=== PATIENT | male | born 1955 | race Caucasian/White ===

== ENCOUNTER 2023-05-11 23:43 | Inpatient (IN) | payer MEDICARE, OTHER ==
[2023-05-11] MEDS: Sodium Chloride 0.9% 10 ML Syringe FLUSH PRN (23:45)
[2023-05-12 00:11] LABS: HEMATOCRIT 44.9 % (38.3-50.1); HEMOGLOBIN 15.4 g/dL (12.9-17.7); MEAN CORPUSCULAR HGB CONC 34.3 g/dL (28.7-35.3); MEAN CORPUSCULAR VOLUME 93.3 fL (80.8-98.7); MEAN PLATELET VOLUME 8.6 fL (6.7-11.0); PLATELET COUNT,PLT 168 x10(3)uL (117-477); RED BLOOD CELL COUNT 4.81 x10(6)uL (3.90-5.90); RED CELL DISTRIBUTION WIDTH 13.7 % (12.4-15.0); WHITE BLOOD CELL COUNT,WBC 15.8 x10-3/uL (3.2-10.1)
[2023-05-12 00:16] LABS: BASE EXCESS VENOUS,POC -11 mmol/L (-2 - 3+); PCO2 VENOUS,POC 28 mmHg (41-51)
[2023-05-12 00:20] LABS: ALANINE AMINOTRANSFERASE,ALT 81 U/L (12-36); ALBUMIN 3.7 g/dL (3.2-4.6); ALKALINE PHOSPHATASE 76 IU/L (56-112); BILIRUBIN TOTAL 1.1 mg/dL (0.1-1.3); BLOOD UREA NITROGEN,BUN 31 mg/dL (7-18); BUN/CREATININE RATIO 16.3 (9-20); CALCIUM 9.5 mg/dL (8.6-10.2); CARBON DIOXIDE,CO2 19 mmol/L (21-32); CREATININE 1.9 mg/dL (0.70-1.30); ESTIMATED GFR 38 mL/min (>60); GLUCOSE RANDOM 122 mg/dL (80-116); MAGNESIUM 2.4 mg/dL (1.8-2.5); PROTEIN TOTAL,TP 7.5 g/dL (6.0-8.0); SODIUM,NA 123 mmol/L (135-145)
[2023-05-12 00:33] LABS: ASPARTATE AMNIOTRANSFERASE,AST 225 IU/L (5-25)
[2023-05-12 00:34] LABS: CHLORIDE,CL 84 mmol/L (100-110)
[2023-05-12] MEDS ORDERED: Sodium Chloride 0.9% 1,000 ML IV ONE ×2 (00:34→01:48)
[2023-05-12 00:35] LABS: C-REACTIVE PROTEIN 19.3 mg/dL (0.5-0.9); ETHANOL BLOOD MEDICAL < 0.03 % (<0.03); TROPONIN I 313.4 pg/mL (4.0-60.3)
[2023-05-12 00:57] LABS: BAND PERCENT MAN 1 % (0-6); LYMPHOCYTES PERCENT MAN 8 % (13-37); MONOCYTES PERCENT MAN 7 % (4-12); SEG NEUTROPHILS PERCENT MAN 84 % (46-82)
[2023-05-12] MEDS ORDERED: Lidocaine 2% HCl 6 ML Jel ONE (01:24)
[2023-05-12] MEDS: Sodium Chloride 0.9% 10 ML Syringe FLUSH PRN ×2 (01:30→20:51)
[2023-05-12 01:33] LABS: BILIRUBIN,URINE SMALL (NEGATIVE); GLUCOSE,URINE NORMAL (NORMAL); KETONES,URINE 15 mg/dL (NEGATIVE); LEUKOCYTE ESTERASE,URINE NEGATIVE (NEGATIVE); NITRITE,URINE NEGATIVE (NEGATIVE); OCCULT BLOOD,URINE LARGE (NEGATIVE); PROTEIN,URINE TRACE mg/dL (NEGATIVE); UROBILINOGEN,URINE NORMAL (NEGATIVE)
[2023-05-12 01:36] LABS: APPEARANCE,URINE CLEAR (CLEAR); COLOR,URINE YELLOW (YELLOW); WBC,URINE 0-5 (0-5)
[2023-05-12 01:37] LABS: BACTERIA,URINE MODERATE (NS); MUCUS,URINE FEW (NS); SQUAMOUS EPITHELIAL CELLS,UR FEW (NS,R,O)
[2023-05-12 01:38] LABS: AMPHETAMINES SCREEN, URINE NEGATIVE (NEGATIVE); BARBITURATE SCREEN,URINE POSITIVE (NEGATIVE); BENZODIAZEPINES SCREEN,URINE NEGATIVE (NEGATIVE); BUPRENORPHINE SCREEN,URINE NEGATIVE (NEGATIVE); METHADONE SCREEN, URINE NEGATIVE (NEGATIVE); METHAMPHETAMINE SCREEN, URINE NEGATIVE (NEGATIVE); OXYCODONE SCREEN,URINE NEGATIVE (NEGATIVE); PROPOXYPHENE SCREEN,URINE NEGATIVE (NEGATIVE); THC SCREEN,URINE NEGATIVE (NEGATIVE)
[2023-05-12] MEDS ORDERED: Sodium Chloride 0.9% 1,000 ML IV SCH (02:00)
[2023-05-12] MEDS: Sodium Chloride 0.9% 1,000 ML IV SCH ×3 (02:15→20:47)
[2023-05-12] MEDS ORDERED: Ondansetron 4 MG/2 ML SDV IV PRN (04:55)
[2023-05-12] MEDS ORDERED: Enoxaparin 40 MG/0.4 ML Syringe SUBCUT SCH (05:00)
[2023-05-12] MEDS ORDERED: Diphtheria,Pertussis(Acell),Tetanus Vaccine 0.5 ML Syringe IM ONE (05:48)
[2023-05-12 06:39] LABS: BASOPHILS PERCENT AUTO 0.2 % (0.3-3.8); HEMATOCRIT 37.4 % (38.3-50.1); LYMPHOCYTES ABSOLUTE AUTO 1.1 x10-3/uL (0.5-4.5); LYMPHOCYTES PERCENT AUTO 8.2 % (15.8-45.3); MEAN CORPUSCULAR HEMOGLOBIN 31.9 pg (27.0-33.3); MEAN CORPUSCULAR HGB CONC 34.7 g/dL (28.7-35.3); MEAN PLATELET VOLUME 8.3 fL (6.7-11.0); MONOCYTES ABSOLUTE AUTO 1.3 x10-3/uL (0.0-1.2); MONOCYTES PERCENT AUTO 10.4 % (5.5-15.2); NEUTROPHILS ABSOLUTE AUTO 10.5 x10-3/uL (1.7-6.9); NEUTROPHILS PERCENT AUTO 81.2 % (40.3-71.8); PLATELET COUNT,PLT 154 x10(3)uL (117-477); RED BLOOD CELL COUNT 4.06 x10(6)uL (3.90-5.90); RED CELL DISTRIBUTION WIDTH 13.6 % (12.4-15.0); WHITE BLOOD CELL COUNT,WBC 12.9 x10-3/uL (3.2-10.1)
[2023-05-12 06:42] LABS: BLOOD UREA NITROGEN,BUN 32 mg/dL (7-18); BUN/CREATININE RATIO 22.9 (9-20); CALCIUM 8.4 mg/dL (8.6-10.2); CARBON DIOXIDE,CO2 23 mmol/L (21-32); CHLORIDE,CL 90 mmol/L (100-110); CREATININE 1.4 mg/dL (0.70-1.30); EST CRCL DRUG DOSING (CG) 55.37 mL/min; ESTIMATED GFR 55 mL/min (>60); GLUCOSE RANDOM 99 mg/dL (80-116); POTASSIUM,K 4.2 mmol/L (3.5-5.3); SODIUM,NA 126 mmol/L (135-145)
[2023-05-12] MEDS: Pantoprazole 40 MG Vial IVPUSH SCH ×2 (07:01→17:53)
[2023-05-12] MEDS ORDERED: PHENobarbital 16.2 MG Tab PO SCH (09:00)
[2023-05-12] MEDS: PHENobarbital 32.4 MG Tab PO SCH (10:46)
[2023-05-13] MEDS: Pantoprazole 40 MG Vial IVPUSH SCH ×2 (04:58→17:54)
[2023-05-13] MEDS: Sodium Chloride 0.9% 1,000 ML IV SCH ×3 (05:27→22:30)
[2023-05-13 06:51] LABS: BASOPHILS PERCENT AUTO 0.3 % (0.3-3.8); EOSINOPHILS PERCENT AUTO 0.5 % (0.1-6.8); HEMATOCRIT 30.9 % (38.3-50.1); LYMPHOCYTES ABSOLUTE AUTO 1.2 x10-3/uL (0.5-4.5); LYMPHOCYTES PERCENT AUTO 16.4 % (15.8-45.3); MEAN CORPUSCULAR HEMOGLOBIN 32.5 pg (27.0-33.3); MEAN CORPUSCULAR HGB CONC 35.4 g/dL (28.7-35.3); MEAN CORPUSCULAR VOLUME 91.7 fL (80.8-98.7); MEAN PLATELET VOLUME 8.2 fL (6.7-11.0); MONOCYTES ABSOLUTE AUTO 0.6 x10-3/uL (0.0-1.2); MONOCYTES PERCENT AUTO 8.2 % (5.5-15.2); NEUTROPHILS ABSOLUTE AUTO 5.3 x10-3/uL (1.7-6.9); NEUTROPHILS PERCENT AUTO 74.6 % (40.3-71.8); PLATELET COUNT,PLT 123 x10(3)uL (117-477); RED BLOOD CELL COUNT 3.38 x10(6)uL (3.90-5.90); RED CELL DISTRIBUTION WIDTH 13.3 % (12.4-15.0); WHITE BLOOD CELL COUNT,WBC 7.1 x10-3/uL (3.2-10.1)
[2023-05-13 07:20] LABS: ALANINE AMINOTRANSFERASE,ALT 67 U/L (12-36); ALBUMIN 2.7 g/dL (3.2-4.6); ALKALINE PHOSPHATASE 52 IU/L (56-112); BILIRUBIN TOTAL 0.9 mg/dL (0.1-1.3); BLOOD UREA NITROGEN,BUN 18 mg/dL (7-18); BUN/CREATININE RATIO 22.5 (9-20); CARBON DIOXIDE,CO2 25 mmol/L (21-32); CHLORIDE,CL 94 mmol/L (100-110); CREATININE 0.8 mg/dL (0.70-1.30); EST CRCL DRUG DOSING (CG) 95.43 mL/min; ESTIMATED GFR 97 mL/min (>60); GLUCOSE RANDOM 105 mg/dL (80-116); POTASSIUM,K 3.6 mmol/L (3.5-5.3); PROTEIN TOTAL,TP 5.5 g/dL (6.0-8.0); SODIUM,NA 127 mmol/L (135-145)
[2023-05-13 07:22] LABS: ASPARTATE AMNIOTRANSFERASE,AST 182 IU/L (5-25)
[2023-05-13 07:23] LABS: CREATINE KINASE,CK 3760 IU/L (60-160)
[2023-05-13] MEDS: PHENobarbital 32.4 MG Tab PO SCH (09:43)
[2023-05-13] MEDS: Enoxaparin 40 MG/0.4 ML Syringe SUBCUT SCH (09:45)
[2023-05-13] MEDS: Sodium Chloride 1 GM Tab PO SCH ×2 (11:55→21:00)
[2023-05-13] MEDS: Loperamide 2 MG Cap PO PRN (15:27)
[2023-05-14] MEDS: Acetaminophen 325 MG Tab PO PRN ×3 (03:57→22:23)
[2023-05-14] MEDS: Sodium Chloride 0.9% 1,000 ML IV SCH (06:40)
[2023-05-14 06:52] LABS: BILIRUBIN,URINE NEGATIVE (NEGATIVE); GLUCOSE,URINE NORMAL (NORMAL); KETONES,URINE NEGATIVE (NEGATIVE); LEUKOCYTE ESTERASE,URINE NEGATIVE (NEGATIVE); NITRITE,URINE NEGATIVE (NEGATIVE); OCCULT BLOOD,URINE MODERATE (NEGATIVE); PROTEIN,URINE NEGATIVE (NEGATIVE); UROBILINOGEN,URINE NORMAL (NEGATIVE)
[2023-05-14 06:55] LABS: APPEARANCE,URINE CLEAR (CLEAR); BACTERIA,URINE OCCASIONAL (NS); COLOR,URINE YELLOW (YELLOW); RBC,URINE 0-5 (0-5); SQUAMOUS EPITHELIAL CELLS,UR RARE (NS,R,O); WBC,URINE 0-5 (0-5)
[2023-05-14 07:18] LABS: BLOOD UREA NITROGEN,BUN 10 mg/dL (7-18); BUN/CREATININE RATIO 12.5 (9-20); CALCIUM 8.3 mg/dL (8.6-10.2); CARBON DIOXIDE,CO2 28 mmol/L (21-32); CHLORIDE,CL 96 mmol/L (100-110); CREATININE 0.8 mg/dL (0.70-1.30); EST CRCL DRUG DOSING (CG) 95.43 mL/min; ESTIMATED GFR 97 mL/min (>60); GLUCOSE RANDOM 103 mg/dL (80-116); POTASSIUM,K 3.5 mmol/L (3.5-5.3); SODIUM,NA 130 mmol/L (135-145)
[2023-05-14] MEDS: Pantoprazole 40 MG Vial IVPUSH SCH (07:25)
[2023-05-14] MEDS: Loperamide 2 MG Cap PO PRN (08:33)
[2023-05-14] MEDS: PHENobarbital 32.4 MG Tab PO SCH (08:34)
[2023-05-14] MEDS: Sodium Chloride 1 GM Tab PO SCH ×2 (08:35→20:12)
[2023-05-14] MEDS: Enoxaparin 40 MG/0.4 ML Syringe SUBCUT SCH (08:36)
[2023-05-15] MEDS: Loperamide 2 MG Cap PO PRN ×2 (04:59→14:33)
[2023-05-15 07:21] LABS: BLOOD UREA NITROGEN,BUN 8 mg/dL (7-18); CALCIUM 8.9 mg/dL (8.6-10.2); CARBON DIOXIDE,CO2 30 mmol/L (21-32); CHLORIDE,CL 93 mmol/L (100-110); CREATININE 0.8 mg/dL (0.70-1.30); EST CRCL DRUG DOSING (CG) 95.43 mL/min; ESTIMATED GFR 97 mL/min (>60); GLUCOSE RANDOM 99 mg/dL (80-116); POTASSIUM,K 3.8 mmol/L (3.5-5.3); SODIUM,NA 128 mmol/L (135-145)
[2023-05-15 07:22] LABS: CREATINE KINASE,CK 3559 IU/L (60-160)
[2023-05-15] MEDS: Enoxaparin 40 MG/0.4 ML Syringe SUBCUT SCH (08:17)
[2023-05-15] MEDS: Sodium Chloride 1 GM Tab PO SCH ×2 (08:17→20:32)
[2023-05-15] MEDS: PHENobarbital 32.4 MG Tab PO SCH (08:17)
[2023-05-16] MEDS: Loperamide 2 MG Cap PO PRN (07:10)
[2023-05-16 07:15] LABS: BLOOD UREA NITROGEN,BUN 9 mg/dL (7-18); BUN/CREATININE RATIO 11.3 (9-20); CALCIUM 8.9 mg/dL (8.6-10.2); CARBON DIOXIDE,CO2 30 mmol/L (21-32); CHLORIDE,CL 93 mmol/L (100-110); CREATININE 0.8 mg/dL (0.70-1.30); EST CRCL DRUG DOSING (CG) 95.43 mL/min; ESTIMATED GFR 97 mL/min (>60); GLUCOSE RANDOM 100 mg/dL (80-116); POTASSIUM,K 3.9 mmol/L (3.5-5.3); SODIUM,NA 130 mmol/L (135-145)
[2023-05-16 07:17] LABS: CREATINE KINASE,CK 1481 IU/L (60-160)
[2023-05-16] MEDS: Enoxaparin 40 MG/0.4 ML Syringe SUBCUT SCH (09:35)
[2023-05-16] MEDS: Sodium Chloride 1 GM Tab PO SCH ×2 (09:36→20:51)
[2023-05-16] MEDS: PHENobarbital 32.4 MG Tab PO SCH (09:37)
[2023-05-16] MEDS ORDERED: Ondansetron 4 MG Tab.DIS PO PRN (19:01)
[2023-05-17 07:08] LABS: BLOOD UREA NITROGEN,BUN 9 mg/dL (7-18); BUN/CREATININE RATIO 11.3 (9-20); CALCIUM 9.1 mg/dL (8.6-10.2); CARBON DIOXIDE,CO2 31 mmol/L (21-32); CHLORIDE,CL 93 mmol/L (100-110); CREATININE 0.8 mg/dL (0.70-1.30); EST CRCL DRUG DOSING (CG) 95.43 mL/min; ESTIMATED GFR 97 mL/min (>60); GLUCOSE RANDOM 93 mg/dL (80-116); POTASSIUM,K 3.8 mmol/L (3.5-5.3); SODIUM,NA 130 mmol/L (135-145)
[2023-05-17 07:13] LABS: CREATINE KINASE,CK 720 IU/L (60-160)
[2023-05-17] MEDS: Enoxaparin 40 MG/0.4 ML Syringe SUBCUT SCH (08:30)
[2023-05-17] MEDS: PHENobarbital 32.4 MG Tab PO SCH (08:31)
[2023-05-17] MEDS: Sodium Chloride 1 GM Tab PO SCH (08:31)
== END 2023-05-17 13:35 | disposition home or self-care (01) | DRG 565 ==
LOC: FB.ED 23:43 → FB.MS 05-12 04:52
PROVIDERS: ADMIT Emergency Medicine; ATTEND Family Medicine
PROC: 3E0234Z Introduction of Serum, Toxoid and Vaccine into Muscle, Percutaneous Approach (ICD-10-PCS; principal; 2023-05-12)
DX: T79.6XXA Traumatic ischemia of muscle, initial encounter (principal); E87.1 Hypo-osmolality and hyponatremia; N17.9 Acute kidney failure, unspecified; N39.0 Urinary tract infection, site not specified; R77.8 Other specified abnormalities of plasma proteins; R56.9 Unspecified convulsions; Z96.643 Presence of artificial hip joint, bilateral; G93.89 Other specified disorders of brain; M47.812 Spondylosis without myelopathy or radiculopathy, cervical region; E86.0 Dehydration; E87.20 Acidosis, unspecified; S00.83XA Contusion of other part of head, initial encounter; I10 Essential (primary) hypertension; R31.29 Other microscopic hematuria; B96.89 Other specified bacterial agents as the cause of diseases classified elsewhere; F10.90 Alcohol use, unspecified, uncomplicated; Z23 Encounter for immunization; S20.219A Contusion of unspecified front wall of thorax, initial encounter; Z90.89 Acquired absence of other organs; S80.212A Abrasion, left knee, initial encounter; S80.211A Abrasion, right knee, initial encounter; Z79.899 Other long term (current) drug therapy; W19.XXXA Unspecified fall, initial encounter
CPT/HCPCS: 36415; 51702; 70450; 71250; 72125; 74176; 80048; 80053; 80307; 81001; 82550; 83605; 83735; 84295; 84484; 85025; 86140; 87086; 90471; 90715; 93005; 93010; 96360; 96361; 97161-GP; 97165-GO; 97530-GP; 97535-GO; 99222; 99232; 99238; 99285; 99285-25; A9270-GY; C9113; J1650; J3490; J7030; Q0162

== ENCOUNTER 2024-06-02 15:18 | Inpatient (IN) | payer MEDICAID, MEDICARE ==
[2024-06-02 15:43] LABS: BASOPHILS PERCENT AUTO 0.8 % (0.3-3.8); EOSINOPHILS ABSOLUTE AUTO 0.4 x10-3/uL (0.0-0.6); EOSINOPHILS PERCENT AUTO 6.6 % (0.1-6.8); HEMATOCRIT 39.6 % (38.3-50.1); HEMOGLOBIN 13.6 g/dL (12.9-17.7); LYMPHOCYTES ABSOLUTE AUTO 1.4 x10-3/uL (0.5-4.5); MEAN CORPUSCULAR HEMOGLOBIN 30.7 pg (27.0-33.3); MEAN CORPUSCULAR HGB CONC 34.5 g/dL (28.7-35.3); MEAN CORPUSCULAR VOLUME 89.2 fL (80.8-98.7); MEAN PLATELET VOLUME 7.4 fL (6.7-11.0); MONOCYTES ABSOLUTE AUTO 0.6 x10-3/uL (0.0-1.2); MONOCYTES PERCENT AUTO 9.8 % (5.5-15.2); NEUTROPHILS ABSOLUTE AUTO 3.8 x10-3/uL (1.7-6.9); NEUTROPHILS PERCENT AUTO 60.8 % (40.3-71.8); PLATELET COUNT,PLT 178 x10(3)uL (117-477); RED BLOOD CELL COUNT 4.44 x10(6)uL (3.90-5.90); RED CELL DISTRIBUTION WIDTH 12.9 % (12.4-15.0); WHITE BLOOD CELL COUNT,WBC 6.3 x10-3/uL (3.2-10.1)
[2024-06-02] MEDS: Lactated Ringers 1,000 ML IV ONE (15:49)
[2024-06-02] MEDS: Sodium Chloride 0.9% 10 ML Syringe FLUSH PRN (15:49)
[2024-06-02] MEDS: Atropine/Diphenoxylate 0.025-2.5 MG Tab PO ONE (15:49)
[2024-06-02 15:54] LABS: ALANINE AMINOTRANSFERASE,ALT 12 U/L (12-36); ALBUMIN 3.6 g/dL (3.2-4.6); ALKALINE PHOSPHATASE 93 IU/L (56-112); ASPARTATE AMNIOTRANSFERASE,AST 20 IU/L (5-25); BILIRUBIN TOTAL 0.9 mg/dL (0.1-1.3); BLOOD UREA NITROGEN,BUN 7 mg/dL (7-18); CALCIUM 8.1 mg/dL (8.6-10.2); CARBON DIOXIDE,CO2 24 mmol/L (21-32); CREATININE 0.7 mg/dL (0.70-1.30); ESTIMATED GFR 100 mL/min (>60); GLUCOSE RANDOM 92 mg/dL (80-116); POTASSIUM,K 3.9 mmol/L (3.5-5.3); PROTEIN TOTAL,TP 7.2 g/dL (6.0-8.0)
[2024-06-02 15:55] LABS: CHLORIDE,CL 81 mmol/L (100-110); SODIUM,NA 115 mmol/L (135-145)
[2024-06-02 15:58] LABS: LACTIC ACID 0.8 mmol/L (0.4-2.0)
[2024-06-02] MEDS: Lactated Ringers 1,000 ML IV SCH (17:42)
[2024-06-02 19:06] LABS: BLOOD UREA NITROGEN,BUN 6 mg/dL (7-18); BUN/CREATININE RATIO 8.6 (9-20); CALCIUM 8.3 mg/dL (8.6-10.2); CARBON DIOXIDE,CO2 25 mmol/L (21-32); CREATININE 0.7 mg/dL (0.70-1.30); EST CRCL DRUG DOSING (CG) 107.57 mL/min; ESTIMATED GFR 100 mL/min (>60); GLUCOSE RANDOM 89 mg/dL (80-116); POTASSIUM,K 4.2 mmol/L (3.5-5.3)
[2024-06-02 19:10] LABS: CHLORIDE,CL 86 mmol/L (100-110); SODIUM,NA 119 mmol/L (135-145)
[2024-06-02] MEDS ORDERED: Ondansetron 4 MG/2 ML SDV IV PRN (19:24)
[2024-06-02] MEDS: Sodium Chloride 0.9% 1,000 ML IV SCH (19:41)
[2024-06-03 00:08] LABS: APPEARANCE,URINE CLEAR (CLEAR); COLOR,URINE YELLOW (YELLOW)
[2024-06-03 00:09] LABS: BACTERIA,URINE OCCASIONAL (NS); BILIRUBIN,URINE NEGATIVE (NEGATIVE); GLUCOSE,URINE NORMAL (NORMAL); KETONES,URINE 15 mg/dL (NEGATIVE); LEUKOCYTE ESTERASE,URINE NEGATIVE (NEGATIVE); NITRITE,URINE NEGATIVE (NEGATIVE); OCCULT BLOOD,URINE NEGATIVE (NEGATIVE); PROTEIN,URINE NEGATIVE (NEGATIVE); RBC,URINE 0-5 (0-5); SQUAMOUS EPITHELIAL CELLS,UR OCCASIONAL (NS,R,O); UROBILINOGEN,URINE NORMAL (NEGATIVE); WBC,URINE 0-5 (0-5)
[2024-06-03 06:46] LABS: BASOPHILS PERCENT AUTO 0.6 % (0.3-3.8); EOSINOPHILS ABSOLUTE AUTO 0.4 x10-3/uL (0.0-0.6); EOSINOPHILS PERCENT AUTO 7.1 % (0.1-6.8); HEMATOCRIT 39.5 % (38.3-50.1); HEMOGLOBIN 13.8 g/dL (12.9-17.7); LYMPHOCYTES ABSOLUTE AUTO 1.3 x10-3/uL (0.5-4.5); LYMPHOCYTES PERCENT AUTO 21.9 % (15.8-45.3); MEAN CORPUSCULAR HEMOGLOBIN 31.2 pg (27.0-33.3); MEAN CORPUSCULAR VOLUME 89.3 fL (80.8-98.7); MEAN PLATELET VOLUME 7.6 fL (6.7-11.0); MONOCYTES ABSOLUTE AUTO 0.7 x10-3/uL (0.0-1.2); MONOCYTES PERCENT AUTO 10.7 % (5.5-15.2); NEUTROPHILS ABSOLUTE AUTO 3.6 x10-3/uL (1.7-6.9); NEUTROPHILS PERCENT AUTO 59.7 % (40.3-71.8); PLATELET COUNT,PLT 193 x10(3)uL (117-477); RED BLOOD CELL COUNT 4.43 x10(6)uL (3.90-5.90); RED CELL DISTRIBUTION WIDTH 12.9 % (12.4-15.0); WHITE BLOOD CELL COUNT,WBC 6.1 x10-3/uL (3.2-10.1)
[2024-06-03 06:58] LABS: BLOOD UREA NITROGEN,BUN 5 mg/dL (7-18); BUN/CREATININE RATIO 6.3 (9-20); CALCIUM 8.2 mg/dL (8.6-10.2); CARBON DIOXIDE,CO2 28 mmol/L (21-32); CHLORIDE,CL 92 mmol/L (100-110); CREATINE KINASE,CK 135 IU/L (60-160); CREATININE 0.8 mg/dL (0.70-1.30); EST CRCL DRUG DOSING (CG) 95.56 mL/min; ESTIMATED GFR 96 mL/min (>60); GLUCOSE RANDOM 91 mg/dL (80-116); MAGNESIUM 1.8 mg/dL (1.8-2.5); POTASSIUM,K 3.9 mmol/L (3.5-5.3); SODIUM,NA 127 mmol/L (135-145)
[2024-06-03] MEDS: Dextrose 5% in Water 1,000 ML IV SCH (09:16)
[2024-06-03] MEDS: Sodium Chloride 0.9% 1,000 ML IV SCH (14:56)
[2024-06-03] MEDS: Thiamine 100 MG in Sodium Chloride 0.9% 50 ML IV SCH (15:08)
[2024-06-03] MEDS: PHENobarbital 32.4 MG Tab PO SCH (15:08)
[2024-06-03] MEDS: Enoxaparin 40 MG/0.4 ML Syringe SUBCUT SCH (15:11)
[2024-06-04 06:48] LABS: BASOPHILS ABSOLUTE AUTO 0.1 x10-3/uL (0.0-0.3); BASOPHILS PERCENT AUTO 0.9 % (0.3-3.8); EOSINOPHILS ABSOLUTE AUTO 0.7 x10-3/uL (0.0-0.6); HEMATOCRIT 36.7 % (38.3-50.1); HEMOGLOBIN 12.7 g/dL (12.9-17.7); LYMPHOCYTES ABSOLUTE AUTO 1.8 x10-3/uL (0.5-4.5); LYMPHOCYTES PERCENT AUTO 27.2 % (15.8-45.3); MEAN CORPUSCULAR HEMOGLOBIN 31.2 pg (27.0-33.3); MEAN CORPUSCULAR HGB CONC 34.7 g/dL (28.7-35.3); MEAN CORPUSCULAR VOLUME 90.1 fL (80.8-98.7); MEAN PLATELET VOLUME 7.7 fL (6.7-11.0); MONOCYTES ABSOLUTE AUTO 0.6 x10-3/uL (0.0-1.2); MONOCYTES PERCENT AUTO 9.3 % (5.5-15.2); NEUTROPHILS ABSOLUTE AUTO 3.5 x10-3/uL (1.7-6.9); NEUTROPHILS PERCENT AUTO 52.6 % (40.3-71.8); PLATELET COUNT,PLT 175 x10(3)uL (117-477); RED BLOOD CELL COUNT 4.07 x10(6)uL (3.90-5.90); RED CELL DISTRIBUTION WIDTH 13.1 % (12.4-15.0); WHITE BLOOD CELL COUNT,WBC 6.6 x10-3/uL (3.2-10.1)
[2024-06-04 07:01] LABS: BLOOD UREA NITROGEN,BUN 5 mg/dL (7-18); BUN/CREATININE RATIO 5.6 (9-20); CALCIUM 8.2 mg/dL (8.6-10.2); CARBON DIOXIDE,CO2 28 mmol/L (21-32); CHLORIDE,CL 94 mmol/L (100-110); CREATININE 0.9 mg/dL (0.70-1.30); EST CRCL DRUG DOSING (CG) 84.94 mL/min; ESTIMATED GFR 93 mL/min (>60); GLUCOSE RANDOM 90 mg/dL (80-116); POTASSIUM,K 3.8 mmol/L (3.5-5.3); SODIUM,NA 127 mmol/L (135-145)
[2024-06-04] MEDS: Thiamine 200 MG/2 ML MDV IV SCH (08:45)
[2024-06-04] MEDS: Acetaminophen 325 MG Tab PO PRN (20:58)
[2024-06-05 06:37] LABS: BASOPHILS ABSOLUTE AUTO 0.1 x10-3/uL (0.0-0.3); EOSINOPHILS ABSOLUTE AUTO 0.8 x10-3/uL (0.0-0.6); EOSINOPHILS PERCENT AUTO 13.7 % (0.1-6.8); HEMATOCRIT 36.6 % (38.3-50.1); HEMOGLOBIN 12.7 g/dL (12.9-17.7); LYMPHOCYTES ABSOLUTE AUTO 1.5 x10-3/uL (0.5-4.5); MEAN CORPUSCULAR HEMOGLOBIN 31.1 pg (27.0-33.3); MEAN CORPUSCULAR HGB CONC 34.7 g/dL (28.7-35.3); MEAN CORPUSCULAR VOLUME 89.7 fL (80.8-98.7); MEAN PLATELET VOLUME 7.8 fL (6.7-11.0); MONOCYTES ABSOLUTE AUTO 0.5 x10-3/uL (0.0-1.2); MONOCYTES PERCENT AUTO 8.9 % (5.5-15.2); NEUTROPHILS ABSOLUTE AUTO 3.2 x10-3/uL (1.7-6.9); NEUTROPHILS PERCENT AUTO 51.4 % (40.3-71.8); PLATELET COUNT,PLT 174 x10(3)uL (117-477); RED BLOOD CELL COUNT 4.09 x10(6)uL (3.90-5.90); RED CELL DISTRIBUTION WIDTH 13.3 % (12.4-15.0); WHITE BLOOD CELL COUNT,WBC 6.1 x10-3/uL (3.2-10.1)
[2024-06-05 06:39] LABS: BLOOD UREA NITROGEN,BUN 5 mg/dL (7-18); BUN/CREATININE RATIO 5.6 (9-20); CALCIUM 7.9 mg/dL (8.6-10.2); CARBON DIOXIDE,CO2 26 mmol/L (21-32); CHLORIDE,CL 97 mmol/L (100-110); CREATININE 0.9 mg/dL (0.70-1.30); EST CRCL DRUG DOSING (CG) 84.94 mL/min; ESTIMATED GFR 93 mL/min (>60); GLUCOSE RANDOM 96 mg/dL (80-116); POTASSIUM,K 3.7 mmol/L (3.5-5.3); SODIUM,NA 129 mmol/L (135-145)
[2024-06-05] MEDS: Sodium Chloride 1 GM Tab PO STA (10:09)
[2024-06-05] MEDS: Calcium Carbonate 500 MG Tab.Chew PO ONE (14:02)
[2024-06-07 06:28] LABS: ADENOVIRUS 40/41 PCR Not Detected; ASTROVIRUS PCR Not Detected; CAMPYLOBACTER PCR Not Detected; CRYPTOSPORIDIUM PCR Not Detected; CYCLOSPORA CAYETANENSIS PCR Not Detected; ENTAMOEBA HISTOLYTICA PCR Not Detected; ENTEROAGGREGATIVE E. COLI PCR Not Detected; ENTEROPATHOGENIC E. COLI PCR Not Detected; ENTEROTOXIGENIC E. COLI PCR Not Detected; GIARDIA LAMBLIA PCR Not Detected; NOROVIRUS GI/GII PCR Not Detected; PLESIOMONAS SHIGELLOIDES PCR Not Detected; ROTAVIRUS A PCR Not Detected; SALMONELLA PCR Not Detected; SAPOVIRUS PCR Not Detected; SHIG/ENTEROINVASIVE E COLI PCR Not Detected; SHIGA TOXIN-PRODUC E. COLI PCR Not Detected; VIBRIO CHOLERAE PCR Not Detected; VIBRIO PCR Not Detected; YERSINIA ENTEROCOLITICA PCR Not Detected
== END 2024-06-05 15:45 | disposition home health service (06) | DRG 641 ==
LOC: FB.ED 15:18 → FB.MS 19:24 → OBSVTOIN 06-04 16:09
PROVIDERS: ADMIT Family Medicine; ATTEND Internal Medicine
DX: E87.1 Hypo-osmolality and hyponatremia (principal); K52.9 Noninfective gastroenteritis and colitis, unspecified; E86.0 Dehydration; Z96.649 Presence of unspecified artificial hip joint; Z79.899 Other long term (current) drug therapy; Z90.89 Acquired absence of other organs
CPT/HCPCS: 36415 ×3; 80048 ×3; 80053; 81001; 82550; 83605; 83690; 83735; 84295 ×4; 85025 ×3; 86140; 87040 ×2; 87230; 87507; 94150; 96360; 96361; 99285 ×2; A9270 ×3; J1650 ×2; J3411 ×2; J3490 ×2; J7030 ×5; J7060; J7120 ×2; U0002; 96365; 96366; 96372; 96376; 97161-GP; 97165-GO; 97530-GP; 99222; 99232; 99238; G0378

== ENCOUNTER 2024-06-09 20:54 | Emergency (ER) | payer MEDICARE ==
[2024-06-09 21:41] LABS: APPEARANCE,URINE CLEAR (CLEAR); BACTERIA,URINE NOT SEEN (NS); BILIRUBIN,URINE NEGATIVE (NEGATIVE); COLOR,URINE YELLOW (YELLOW); GLUCOSE,URINE NORMAL (NORMAL); KETONES,URINE NEGATIVE (NEGATIVE); LEUKOCYTE ESTERASE,URINE NEGATIVE (NEGATIVE); NITRITE,URINE NEGATIVE (NEGATIVE); OCCULT BLOOD,URINE NEGATIVE (NEGATIVE); PH,URINE 6.5 (5.0-6.5); PROTEIN,URINE NEGATIVE (NEGATIVE); RBC,URINE 0-5 (0-5); SQUAMOUS EPITHELIAL CELLS,UR NOT SEEN (NS,R,O); UROBILINOGEN,URINE NORMAL (NEGATIVE); WBC,URINE 0-5 (0-5)
[2024-06-09] MEDS ORDERED: Sodium Chloride 0.9% 10 ML Syringe FLUSH PRN (21:59)
[2024-06-09] MEDS: Sodium Chloride 0.9% 1,000 ML IV ONE (22:10)
[2024-06-09 22:14] LABS: BASOPHILS ABSOLUTE AUTO 0.1 x10-3/uL (0.0-0.3); BASOPHILS PERCENT AUTO 1.2 % (0.3-3.8); EOSINOPHILS ABSOLUTE AUTO 0.4 x10-3/uL (0.0-0.6); EOSINOPHILS PERCENT AUTO 7.7 % (0.1-6.8); HEMATOCRIT 39.9 % (38.3-50.1); LYMPHOCYTES ABSOLUTE AUTO 1.8 x10-3/uL (0.5-4.5); LYMPHOCYTES PERCENT AUTO 33.6 % (15.8-45.3); MEAN CORPUSCULAR HEMOGLOBIN 31.3 pg (27.0-33.3); MEAN CORPUSCULAR HGB CONC 35.2 g/dL (28.7-35.3); MEAN CORPUSCULAR VOLUME 88.9 fL (80.8-98.7); MEAN PLATELET VOLUME 7.4 fL (6.7-11.0); MONOCYTES ABSOLUTE AUTO 0.5 x10-3/uL (0.0-1.2); MONOCYTES PERCENT AUTO 9.2 % (5.5-15.2); NEUTROPHILS ABSOLUTE AUTO 2.6 x10-3/uL (1.7-6.9); NEUTROPHILS PERCENT AUTO 48.3 % (40.3-71.8); PLATELET COUNT,PLT 222 x10(3)uL (117-477); RED BLOOD CELL COUNT 4.49 x10(6)uL (3.90-5.90); RED CELL DISTRIBUTION WIDTH 13.3 % (12.4-15.0); WHITE BLOOD CELL COUNT,WBC 5.4 x10-3/uL (3.2-10.1)
[2024-06-09 22:24] LABS: ALANINE AMINOTRANSFERASE,ALT 14 U/L (12-36); ALBUMIN 3.7 g/dL (3.2-4.6); ALKALINE PHOSPHATASE 87 IU/L (56-112); ASPARTATE AMNIOTRANSFERASE,AST 10 IU/L (5-25); BILIRUBIN TOTAL 0.5 mg/dL (0.1-1.3); BLOOD UREA NITROGEN,BUN 10 mg/dL (7-18); CALCIUM 8.5 mg/dL (8.6-10.2); CARBON DIOXIDE,CO2 27 mmol/L (21-32); CHLORIDE,CL 90 mmol/L (100-110); ESTIMATED GFR 82 mL/min (>60); GLUCOSE RANDOM 91 mg/dL (80-116); POTASSIUM,K 4.1 mmol/L (3.5-5.3); PROTEIN TOTAL,TP 7.3 g/dL (6.0-8.0); SODIUM,NA 125 mmol/L (135-145)
[2024-06-09 22:28] LABS: LACTIC ACID 0.6 mmol/L (0.4-2.0)
[2024-06-09] MEDS: Sodium Chloride 1 GM Tab PO ONE (23:17)
== END 2024-06-09 23:45 | disposition home or self-care (01) ==
LOC: FB.ED 20:54
DX: G44.209 Tension-type headache, unspecified, not intractable (principal); E87.1 Hypo-osmolality and hyponatremia; I10 Essential (primary) hypertension; Z79.899 Other long term (current) drug therapy
CPT/HCPCS: 36415; 80053; 81001; 83605; 85025; 96360; 99284; A9270; J7030

== ENCOUNTER 2024-06-18 08:17 | Emergency (ER) | payer MEDICARE ==
[2024-06-18 09:07] LABS: BASOPHILS ABSOLUTE AUTO 0.1 x10-3/uL (0.0-0.3); BASOPHILS PERCENT AUTO 1.3 % (0.3-3.8); EOSINOPHILS ABSOLUTE AUTO 0.3 x10-3/uL (0.0-0.6); EOSINOPHILS PERCENT AUTO 4.9 % (0.1-6.8); HEMATOCRIT 41.6 % (38.3-50.1); LYMPHOCYTES ABSOLUTE AUTO 1.5 x10-3/uL (0.5-4.5); LYMPHOCYTES PERCENT AUTO 27.4 % (15.8-45.3); MEAN CORPUSCULAR HEMOGLOBIN 30.4 pg (27.0-33.3); MEAN CORPUSCULAR HGB CONC 33.7 g/dL (28.7-35.3); MEAN CORPUSCULAR VOLUME 90.1 fL (80.8-98.7); MEAN PLATELET VOLUME 7.4 fL (6.7-11.0); MONOCYTES ABSOLUTE AUTO 0.5 x10-3/uL (0.0-1.2); MONOCYTES PERCENT AUTO 9.5 % (5.5-15.2); NEUTROPHILS ABSOLUTE AUTO 3.2 x10-3/uL (1.7-6.9); NEUTROPHILS PERCENT AUTO 56.9 % (40.3-71.8); PLATELET COUNT,PLT 246 x10(3)uL (117-477); RED BLOOD CELL COUNT 4.62 x10(6)uL (3.90-5.90); RED CELL DISTRIBUTION WIDTH 13.5 % (12.4-15.0); WHITE BLOOD CELL COUNT,WBC 5.6 x10-3/uL (3.2-10.1)
[2024-06-18 09:14] LABS: BLOOD UREA NITROGEN,BUN 9 mg/dL (7-18); BUN/CREATININE RATIO 8.2 (9-20); CALCIUM 8.9 mg/dL (8.6-10.2); CARBON DIOXIDE,CO2 29 mmol/L (21-32); CHLORIDE,CL 92 mmol/L (100-110); CREATININE 1.1 mg/dL (0.70-1.30); EST CRCL DRUG DOSING (CG) 68.45 mL/min; ESTIMATED GFR 73 mL/min (>60); GLUCOSE RANDOM 92 mg/dL (80-116); POTASSIUM,K 4.5 mmol/L (3.5-5.3); SODIUM,NA 127 mmol/L (135-145)
[2024-06-18] MEDS: Sodium Chloride 0.9% 1,000 ML IV ONE (09:16)
[2024-06-18 09:19] LABS: A/G RATIO 1.1; ALANINE AMINOTRANSFERASE,ALT 13 U/L (12-36); ALBUMIN 3.8 g/dL (3.2-4.6); ALKALINE PHOSPHATASE 93 IU/L (56-112); ASPARTATE AMNIOTRANSFERASE,AST 12 IU/L (5-25); BILIRUBIN TOTAL 0.4 mg/dL (0.1-1.3); MAGNESIUM 1.9 mg/dL (1.8-2.5); PROTEIN TOTAL,TP 7.2 g/dL (6.0-8.0)
[2024-06-18 09:22] LABS: BILIRUBIN,URINE NEGATIVE (NEGATIVE); GLUCOSE,URINE NORMAL (NORMAL); KETONES,URINE NEGATIVE (NEGATIVE); LEUKOCYTE ESTERASE,URINE NEGATIVE (NEGATIVE); NITRITE,URINE NEGATIVE (NEGATIVE); OCCULT BLOOD,URINE NEGATIVE (NEGATIVE); PROTEIN,URINE NEGATIVE (NEGATIVE); UROBILINOGEN,URINE NORMAL (NEGATIVE)
[2024-06-18 09:27] LABS: C-REACTIVE PROTEIN 1.32 mg/dL (<0.50); TROPONIN I 5.6 pg/mL (4.0-60.3); TSH ULTRASENSITIVE 1.24 IU/mL (0.36-3.74)
[2024-06-18 09:32] LABS: APPEARANCE,URINE CLEAR (CLEAR); BACTERIA,URINE RARE (NS); COLOR,URINE YELLOW (YELLOW); RBC,URINE 0-5 (0-5); SQUAMOUS EPITHELIAL CELLS,UR RARE (NS,R,O); WBC,URINE 0-5 (0-5)
== END 2024-06-18 11:37 | disposition home or self-care (01) ==
LOC: FB.ED 08:17
DX: E87.1 Hypo-osmolality and hyponatremia (principal); I10 Essential (primary) hypertension; Z79.899 Other long term (current) drug therapy
CPT/HCPCS: 36415; 80053; 81001; 83735; 83880; 84443; 84484; 85025; 86140; 93005; 93010; 96360; 99283; 99284-25; J7030